=== PATIENT | female | born 1980 | race Caucasian/White ===

== ENCOUNTER 2017-07-04 16:43 | Emergency (ER) | payer OTHER, SELFPAY ==
[2017-07-04 16:45] VITALS: BMI 48.1
--- NOTE | 2017-07-04 16:46 | XR_ITS ---
XR chest 2V COMPARISON: None HISTORY: Chest pain TECHNIQUE: PA and lateral chest FINDINGS: This is somewhat poor inspiration. There are somewhat prominent bronchovascular markings in right lower lobe. This could be confluence of vascular shadows due to the poor inspiration but a minimal pneumonic infiltrate cannot be excluded. Right lung field and left lung field are clear. Cardiac size is likely normal considering the body habitus and poor inspiration. IMPRESSION: Questionable early infiltrate versus confluence of vascular shadows right lower lobe
[2017-07-04 16:55] VITALS: BP 131/91; PULSE 72; RESP 16; TEMP 36.8; O2SAT 96; BMI 48.1
[2017-07-04 17:00] LABS: Basophils # 0.1 K/mm3 (0-0.2); Basophils % 0.5 % (0.1-2.0); Eosinophils # 0.3 K/mm3 (0.0-0.4); Eosinophils % 2.6 % (0.1-12.0); Hematocrit 39.9 % (37.0-47.0); Lymphocytes # 3.8 K/mm3 (0.7-4.5); Lymphocytes % 37.4 K/mm3 (10-50); Mean Corpuscular HGB Conc 32.6 g/dL (31.8-35.4); Mean Corpuscular Hemoglobin 31.3 pg (27.0-31.2); Mean Corpuscular Volume 96.2 fl (81-99); Mean Platelet Volume 8.8 fl (7.4-10.4); Monocytes # 0.5 K/mm3 (0.1-1.0); Monocytes % 4.9 % (1.7-9.3); Neutrophils # 5.5 K/mm3 (1.8-7.8); Neutrophils % 54.5 % (37.0-80.0); Platelet Count 235 K/mm3 (142-424); Red Blood Count 4.15 M/mm3 (4.20-5.40); Red Cell Distribution Width 12.8 % (11.5-17.5); White Blood Count 10.1 K/mm3 (4.8-10.8)
--- NOTE | 2017-07-04 17:08 | HMH.EDSOB ---
ED Disposition Clinical Impression: COPD (chronic obstructive pulmonary disease), Tobacco use, Atypical chest pain, Obesity, Renal insufficiency Disposition: Home, Self-Care Condition on Discharge: Fair Instructions: DI for Chronic Obstructive Pulmonary Disease Additional Instructions: 1- stop smoking. 2- daily baby asa 81 mg . 3- albuterol MDI. 4- need to see her pcp Dr Newby for HGBA1C 5- need a referral by pcp for nephrology evalution. 6- The patient is aware of the above dangers to her health and vernalized undrstanding of the need for follow up. Dr. Langford Prescriptions: Albuterol Sulfate [Albuterol HFA Inhaler] 1 puff IH Q4HP PRN #1 inh PRN Reason: Shortness Of Breath Or Wheezing - Critical Care Critical Care Time: No Attestation: On , the high probability of a clinically significant, sudden or life threatening deterioration of the following system(s) required my full and direct attention, intervention and personal management. The time I documented below is in addition to time spent performing reported procedures but includes the following listed in this critical care notation. Medical Decision Making Vital Signs: 07/04/17 16:55 07/04/17 17:33 07/04/17 17:34 Temperature 98.3 F Temperature Source Oral Pulse Rate 88 83 Pulse Rate [Right Brachial] 72 Respiratory Rate 16 Blood Pressure [Right Arm] 131/91 Blood Pressure Mean [Right Arm] 104 Blood Pressure Source [Right Arm] Automatic Cuff Blood Pressure Position [Right Arm] Sitting 02 Sat by Pulse Oximetry 96 Oxygen Delivery Method Room Air - Lab Data Lab results reviewed: Yes: I reviewed the patient's lab results. Lab Results 07/04/17 16:48: WBC 10.1, RBC 4.15 L, Hgb 13.0, Hct 39.9, MCV 96.2, MCH 31.3 H, MCHC 32.6, RDW 12.8, Plt Count 235, MPV 8.8, Neut % (Auto) 54.5, Lymph % (Auto) 37.4, [place] % (Auto) 4.9, Eos % (Auto) 2.6, Baso % (Auto) 0.5, Neut # (Auto) 5.5, Lymph # (Auto) 3.8, [place] # (Auto) 0.5, Eos # (Auto) 0.3, Baso # (Auto) 0.1 07/04/17 16:48: D-Dimer 366 07/04/17 16:48: Sodium 144, Potassium 3.7, Chloride 107, Carbon Dioxide 29, Anion Gap 11.7, BUN 16, Creatinine 1.17 H, Estimated Creat Clear 52, Estimated GFR 52 L, Est GFR ( Amer) 63, Glucose 110 H, Calcium 8.8, Total Bilirubin 0.3, AST 12 L, ALT 32, Alkaline Phosphatase 135 H, Total Creatine Kinase 108, CK-MB (CK-2) < 0.5, CK-MB (CK-2) Rel Index 0.5, Troponin I < 0.02, Total Protein 7.2, Albumin 3.9, Globulin 3.3 H, Albumin/Globulin Ratio 1.2 07/04/17 16:48: B-Natriuretic Peptide 5 07/04/17 18:18: Specimen Source R/r, O2 % R/a, ABG pH 7.40, ABG pCO2 43.1, ABG pO2 60.3 L, ABG HCO3 26.0, ABG Total CO2 27.3 H, ABG O2 Saturation 93, ABG Base Excess 1.1, Blado Test Y 07/04/17 18:25: Troponin I < 0.02 Result diagrams: 07/04/17 16:48 07/04/17 16:48 Orders (Tests/Meds): ED MEDICATIONS Discontinued Medications Generic Name Dose Route Start Last Admin Trade Name Freq PRN Reason Stop Dose Admin Albuterol/Ipratropium 3 ml 07/04/17 18:00 Duoneb 3ml Neb IH 07/04/17 18:01 ONCE ONE Famotidine 20 mg 07/04/17 17:41 07/04/17 19:00 Pepcid 20mg/2ml Vial IV 07/04/17 17:42 20 mg ONCE ONE Administration Methylprednisolone Sodium Succinate 125 mg 07/04/17 17:41 07/04/17 19:00 Solu-Medrol 125mg/2ml Vial IV 07/04/17 17:42 125 mg ONCE ONE Administration ORDERS Category Date Time Status Chest XR 2 view (NOT portable) [XR chest 2V] Stat Exams 07/04/17 16:46 Taken ABG [Arterial Blood Gas] Stat RT 07/04/17 18:03 Ordered - Radiology Data #1 Image Reviewed: Yes I reviewed the patient's radiology image Preliminary Findings: Abnormal (Chronic changes no acute finding.) - ECG Data Tracing #1 EKG normal sinus rhythm 82/min no acute findings ECG initial impression date: 07/04/17 ECG initial impression time: 17:11 - Lloyd Inquiry Pt receiving controlled substance: No Lloyd was queried for t
--- NOTE | 2017-07-04 17:11 | ED_ITS ---
ED Disposition Clinical Impression: COPD (chronic obstructive pulmonary disease), Tobacco use, Atypical chest pain , Obesity, Renal insufficiency Disposition: Home, Self-Care Condition on Discharge: Fair Instructions: DI for Chronic Obstructive Pulmonary Disease Additional Instructions: 1- stop smoking. 2- daily baby asa 81 mg . 3- albuterol MDI. 4- need to see her pcp Dr Newby for HGBA1C 5- need a referral by pcp for nephrology evalution. 6- The patient is aware of the above dangers to her health and vernalized undrstanding of the need for follow up. Dr. Langford Prescriptions: Albuterol Sulfate [Albuterol HFA Inhaler] 1 puff IH Q4HP PRN #1 inh PRN Reason: Shortness Of Breath Or Wheezing - Critical Care Critical Care Time: No Attestation: On , the high probability of a clinically significant, sudden or life threatening deterioration of the following system(s) required my full and direct attention, intervention and personal management. The time I documented below is in addition to time spent performing reported procedures but includes the following listed in this critical care notation. Medical Decision Making Vital Signs: 07/04/17 16:55 07/04/17 17:33 07/04/17 17:34 Temperature 98.3 F Temperature Source Oral Pulse Rate 88 83 Pulse Rate [Right Brachial] 72 Respiratory Rate 16 Blood Pressure [Right Arm] 131/91 Blood Pressure Mean [Right Arm] 104 Blood Pressure Source [Right Arm] Automatic Cuff Blood Pressure Position [Right Arm] Sitting 02 Sat by Pulse Oximetry 96 Oxygen Delivery Method Room Air - Lab Data Lab results reviewed: Yes: I reviewed the patient's lab results. Lab Results 07/04/17 16:48: WBC 10.1, RBC 4.15 L, Hgb 13.0, Hct 39.9, MCV 96.2, MCH 31.3 H, MCHC 32.6, RDW 12.8, Plt Count 235, MPV 8.8, Neut % (Auto) 54.5, Lymph % (Auto) 37.4, [place] % (Auto) 4.9, Eos % (Auto) 2.6, Baso % (Auto) 0.5, Neut # (Auto) 5.5 , Lymph # (Auto) 3.8, [place] # (Auto) 0.5, Eos # (Auto) 0.3, Baso # (Auto) 0.1 07/04/17 16:48: D-Dimer 366 07/04/17 16:48: Sodium 144, Potassium 3.7, Chloride 107, Carbon Dioxide 29, Anion Gap 11.7, BUN 16, Creatinine 1.17 H, Estimated Creat Clear 52, Estimated GFR 52 L, Est GFR ( Amer) 63, Glucose 110 H, Calcium 8.8, Total Bilirubin 0.3, AST 12 L, ALT 32, Alkaline Phosphatase 135 H, Total Creatine Kinase 108, CK-MB (CK-2) < 0.5, CK-MB (CK-2) Rel Index 0.5, Troponin I < 0.02, Total Protein 7.2, Albumin 3.9, Globulin 3.3 H, Albumin/Globulin Ratio 1.2 07/04/17 16:48: B-Natriuretic Peptide 5 07/04/17 18:18: Specimen Source R/r, O2 % R/a, ABG pH 7.40, ABG pCO2 43.1, ABG pO2 60.3 L, ABG HCO3 26.0, ABG Total CO2 27.3 H, ABG O2 Saturation 93, ABG Base Excess 1.1, Baldo Test Y 07/04/17 18:25: Troponin I < 0.02 Result diagrams: 07/04/17 16:48 07/04/17 16:48 Orders (Tests/Meds): ED MEDICATIONS Discontinued Medications Generic Name Dose Route Start Last Admin Trade Name Freq PRN Reason Stop Dose Admin Albuterol/Ipratropium 3 ml 07/04/17 18:00 Duoneb 3ml Neb IH 07/04/17 18:01 ONCE ONE Famotidine 20 mg 07/04/17 17:41 07/04/17 19:00 Pepcid 20mg/2ml Vial IV 07/04/17 17:42 20 mg ONCE ONE Administration Methylprednisolone Sodium Succinate 125 mg 07/04/17 17:41 07/04/17 19:00 Solu-Medrol 125mg/2ml Vial IV 07/04/17 17:42 125 mg O
[2017-07-04 17:17] LABS: D-Dimer 366 (0-400)
[2017-07-04 17:25] LABS: Alanine Aminotransferase 32 U/L (12-78); Albumin Level 3.9 gm/dL (3.4-5.0); Albumin/Globulin Ratio 1.2 (1.1-1.8); Alkaline Phosphatase 135 U/L (46-116); Anion Gap 11.7 mEq/L (5-15); Aspartate Amino Transferase 12 U/L (15-37); Bilirubin,Total 0.3 mg/dL (0.2-1.0); Blood Urea Nitrogen 16 mg/dL (7-18); Calcium 8.8 mg/dL (8.5-10.1); Carbon Dioxide 29 mmol/L (21.0-32.0); Chloride 107 mmol/L (98-107); Creatine Kinase 108 U/L (26-192); Creatinine Clearance Estimated 52 mL/min (0-300); Creatinine,Serum 1.17 mg/dL (0.55-1.02); Estimated Glomerular Filt Rate 52 ml/min (>60); GFR (African American) 63 ML/MIN (>60); Globulin 3.3 gm/dl (1.3-3.2); Glucose 110 mg/dL (74-106); Potassium 3.7 mmoL/L (3.5-5.1); Sodium 144 mmol/L (136-145); Total Protein,Serum 7.2 gm/dL (6.4-8.2); Troponin I < 0.02 ng/ml (0.00-0.06)
[2017-07-04 17:26] LABS: CKMB Relative Index 0.5 U/L (0-4.0); Creatine Kinase MB < 0.5 mg/ml (0.0-3.6)
[2017-07-04 17:33] VITALS: PULSE 88
[2017-07-04 17:34] VITALS: PULSE 83
[2017-07-04 18:19] LABS: ABG Base Excess 1.1 mmol/L (-2.4-2.3); ABG Oxygen Saturation 93 % (90-100); ABG PCO2 43.1 mmhg (35.0-45.0); ABG PO2 60.3 mmhg (80-100); ABG TCO2 27.3 mmhg (23-27)
[2017-07-04 18:20] LABS: Allen's Test Y; Oxygen R/A %; Source R/R
[2017-07-04 19:06] LABS: Troponin I < 0.02 ng/ml (0.00-0.06)
--- NOTE | 2017-07-04 20:07 | PC.NURSE ---
DOCTOR PHIL CALLED AND SPOKE WITH DR GALVAN ABOUT PT POSSIBLY HAVING PNEUMONIA. DR GALVAN LEFT AND HAND WRITTEN RX FOR PT FOR A Z-EDIL WITH REGISTRATION AND PT WAS CALLED AND STATED SHE WOULD PICK IT UP TONIGHT.
[2017-07-04 20:12] VITALS: BP 110/68; PULSE 83; RESP 18; TEMP 36.7; O2SAT 96
== END 2017-07-04 20:12 | disposition home or self-care (01) ==
PROVIDERS: Emergency Provider Emergency Medicine; Family Provider Family Medicine
DX: R07.9 Chest pain, unspecified (principal); J44.9 Chronic obstructive pulmonary disease, unspecified; F17.210 Nicotine dependence, cigarettes, uncomplicated; E66.9 Obesity, unspecified; Z68.42 Body mass index [BMI] 45.0-49.9, adult; E11.9 Type 2 diabetes mellitus without complications
CPT/HCPCS: 71046; 80053; 82550; 82553; 82803; 83880; 84484; 85025; 85378; 93005; 93041; 96374; 96375; 99282; 99283

== ENCOUNTER 2019-11-17 18:37 | Emergency (ER) | payer OTHER, SELFPAY ==
[2019-11-17 18:39] VITALS: BP 152/91; PULSE 81; RESP 16; TEMP 36.8; O2SAT 98; BMI 45.3
--- NOTE | 2019-11-17 18:57 | XR_ITS ---
PROCEDURE: XR ELBOW RT 2V CLINICAL INDICATION: trauma The pain COMPARISON: No exams were available for comparison FINDINGS: No fracture or dislocation. No lytic or blastic change. There is normal mineralization. The joint spaces are well-preserved. No significant degenerative/arthritic changes. No erosive changes evident. Other findings:None. IMPRESSION: No acute findings. Dictated by: Baldo Valencia MD 11/18/2019 07:04 Electronically signed by Baldo Valencia MD in [place] 11/18/2019 07:04
--- NOTE | 2019-11-17 18:57 | XR_ITS ---
PROCEDURE: XR WRIST RT MIN 3V CLINICAL INDICATION: trauma Pain following injury COMPARISON: No exams were available for comparison FINDINGS: No fracture, dislocation, lytic change, or blastic change evident. No significant degenerative change IMPRESSION: No acute findings. Dictated by: Baldo Valencia MD 11/18/2019 06:55 Electronically signed by Baldo Valencia MD in [facility] 11/18/2019 06:55
--- NOTE | 2019-11-17 19:10 | HMH.EDEXTP ---
ED Disposition Clinical Impression: Traumatic hematoma of right forearm, Sprain of right elbow Disposition: Home, Self-Care Condition on Discharge: Good Instructions: DI for Elbow Sprain Prescriptions: Hydrocod/Acet 5/325 mg [[place] 5/325mg tablet] 1 tab PO Q6HP PRN #7 tab PRN Reason: Moderate Pain Prescription Printed Referrals: Jaci Moran APRN [Primary Care Provider] - Oscar Livingston MD [Staff Physician] - Time of Disposition: 19:37 - Critical Care Critical Care Time: No Attestation: On 11/17/19, the high probability of a clinically significant, sudden or life threatening deterioration of the following system(s) required my full and direct attention, intervention and personal management. The time I documented below is in addition to time spent performing reported procedures but includes the following listed in this critical care notation. Medical Decision Making - Medical Records Medical records reviewed: Yes: I reviewed the patient's medical records. - Lloyd Inquiry Pt receiving controlled substance: Yes Lloyd was queried for this patient: No Risks and benefits of using a controlled substance: were discussed with pt by me Vital Signs: 11/17/19 18:39 Temperature 98.2 F Temperature Source Oral Pulse Rate [Right Brachial] 81 Respiratory Rate 16 Blood Pressure [Right Arm] 152/91 H Blood Pressure Mean [Right Arm] 111 Blood Pressure Source [Right Arm] Automatic Cuff Blood Pressure Position [Right Arm] Sitting 02 Sat by Pulse Oximetry 98 Oxygen Delivery Method Room Air Orders (Tests/Meds): ORDERS Category Date Time Status XR elbow RT 2V Stat Exams 11/17/19 18:57 Taken XR wrist RT min 3V Stat Exams 11/17/19 18:57 Taken - Radiology Data #1 X-ray of the right elbow and wrist did not show any acute fracture or dislocation - Reevaluation(s) Time: 19:34 Reevaluation #1: On reevaluation, the patient is feeling much better. Pain is improved. Will provide Marc wrap. There is no evidence of fracture. Patient was instructed to do normal injury precaution including icing and resting the wound. Discharged with a short course analgesics. Needs to follow-up with orthopedics in 48 hours. Given strict return precautions. Verbalized understanding. Medical Decision Narrative: 39-year-old female presented to the emergency department with right arm pain. Patient has no obvious deformity on exam. Small hematoma. I do believe she is having some mild ulnar paresthesias secondary to the trauma. X-ray will be obtained. Extremity Problem HPI - General Chief complaint: Extremity Injury, Upper Stated complaint: AO fall possible broken R wrist 11/14/19 Time Seen by Provider: 11/17/19 18:41 Mode of Arrival: Ambulatory Limitations: No Limitations Description of Symptoms (Recalled from ER Triage Doc. by RN): Pt advises she fell on wednesday and injured her right wrist. Advises she has been seen at her PCP and she told her she needed to get a second opinion on her injury. - History of Present Illness HPI Narrative: 39-year-old female presented to the emergency department with some right arm pain. Patient states that she had a fall 3 days ago. She fell down 2 stairs and landed on her right side. She is complaining of right arm pain since then. She has been seen in numerous facilities and states that she was not diagnosed with a fracture. She was given Marc bandage, however it is not improved. Patient got concerned because she wrapped the Marc bandage too hard last night and she had some paresthesias in her left hand. And some swelling as well. She states that this did improve but she got concerned. The pain is worse with movement. Is located from her elbow down to her wrist. She denies any new injuries. There was no syncope, head trauma or loss consciousness. Denies any chest pain or shortness of breath. No abdominal pain or vomiting. - Related Data Previous Rx's Medicati
[2019-11-17 19:55] VITALS: BP 142/82; PULSE 71; RESP 18; O2SAT 97
[2019-11-17 20:12] VITALS: BP 129/89; PULSE 73; RESP 14; TEMP 36.8; O2SAT 97
== END 2019-11-17 20:16 | disposition home or self-care (01) ==
PROVIDERS: Emergency Provider Emergency Medicine; PCP Nurse Practitioner Family
DX: S50.11XA Contusion of right forearm, initial encounter (principal); S53.401A Unspecified sprain of right elbow, initial encounter; W10.9XXA Fall (on) (from) unspecified stairs and steps, initial encounter; Y92.019 Unspecified place in single-family (private) house as the place of occurrence of the external cause; F17.210 Nicotine dependence, cigarettes, uncomplicated; E11.9 Type 2 diabetes mellitus without complications; Z88.2 Allergy status to sulfonamides
CPT/HCPCS: 73070; 73110; 99282

== ENCOUNTER 2020-07-28 22:24 | Emergency (ER) | payer OTHER, SELFPAY ==
[2020-07-28 22:25] VITALS: BP 148/92; PULSE 80; RESP 14; TEMP 36.5; O2SAT 95; BMI 46.3
--- NOTE | 2020-07-29 00:01 | XR_ITS ---
PROCEDURE: XR RIBS LT MIN 3V W CXR1V CLINICAL INDICATION: pain COMPARISON: No exams were available for comparison FINDINGS: Multiple views of the left ribs show no obvious fracture. No lytic or blastic change. Consider follow-up in 7-[address] with 3D reformats if pain persists Frontal view of the chest shows no acute finding IMPRESSION: No acute findings. Dictated by: Baldo Valencia MD 07/29/2020 05:11 Baldo Valencia MD in [facility] 07/29/2020 05:11
--- NOTE | 2020-07-29 00:29 | HMH.EDGENADL ---
ED Disposition Clinical Impression: Costochondritis, acute Disposition: Home, Self-Care Condition on Discharge: Good Instructions: DI for Acute Pain -- Adult Additional Instructions: see pcp for follow up Prescriptions: predniSONE [Prednisone 20mg Tab] 20 mg PO BID #10 tab Transmission Status: Pending to [facility] Referrals: Jaci Moran APRN [Primary Care Provider] - - Critical Care Critical Care Time: No Attestation: On 07/28/20, the high probability of a clinically significant, sudden or life threatening deterioration of the following system(s) required my full and direct attention, intervention and personal management. The time I documented below is in addition to time spent performing reported procedures but includes the following listed in this critical care notation. Medical Decision Making - Medical Records Medical records reviewed: Yes: I reviewed the patient's medical records. - Lloyd Inquiry Pt receiving controlled substance: No Vital Signs: 07/28/20 22:25 07/29/20 01:53 07/29/20 02:00 Temperature 97.7 F Temperature Source Oral Pulse Rate 82 64 Pulse Rate [Right] 80 Respiratory Rate 14 Blood Pressure 126/87 133/89 Blood Pressure [Right Arm] 148/92 H Blood Pressure Mean 97 103 Blood Pressure Mean [Right Arm] 110 02 Sat by Pulse Oximetry 95 97 98 Oxygen Delivery Method Room Air - Lab Data Lab results reviewed: Yes: I reviewed the patient's lab results. Lab Results 07/29/20 00:51: WBC 11.8 H, RBC 4.15 L, Hgb 13.6, Hct 41.8, MCV 100.6 H, MCH 32.7 H, MCHC 32.5, RDW 13.8, Plt Count 263, MPV 8.1, Neut % (Auto) 53.4, Lymph % (Auto) 40.0, [place] % (Auto) 3.9, Eos % (Auto) 2.2, Baso % (Auto) 0.6, Neut # (Auto) 6.3, Lymph # (Auto) 4.7 H, [place] # (Auto) 0.5, Eos # (Auto) 0.3, Baso # (Auto) 0.1, ESR 17 07/29/20 00:51: Sodium 139, Potassium 4.1, Chloride 107, Carbon Dioxide 26, Anion Gap 10.1, BUN 19 H, Creatinine 1.10 H, Estimated Creat Clear 58, Estimated GFR 55 L, Est GFR ( Amer) 66, Glucose 106 H, Calcium 9.7, Total Bilirubin 0.3, AST 36, ALT 39, Alkaline Phosphatase 110, C-Reactive Protein 4.3 H, Total Protein 7.4, Albumin 4.6, Globulin 2.8, Albumin/Globulin Ratio 1.6, Amylase 56, Lipase 46, Procalcitonin 0.065 Result diagrams: 07/29/20 00:51 07/29/20 00:51 Orders (Tests/Meds): ED MEDICATIONS Discontinued Medications Generic Name Dose Route Start Last Admin Trade Name Freq PRN Reason Stop Dose Admin Iopamidol 70 ml 07/29/20 01:42 07/29/20 01:43 Iopamidol-370 (76%);100ml Bottle IV 07/29/20 01:43 70 ml ONCE ONE Administration Ketorolac Tromethamine 30 mg 07/29/20 00:39 07/29/20 00:53 Ketorolac 30mg/Ml Vial IV 07/29/20 00:40 30 mg ONCE ONE Administration Methylprednisolone Sodium Succinate 125 mg 07/29/20 00:39 07/29/20 00:53 Methylprednisolone Sod Succ 125mg Vial IV 07/29/20 00:40 125 mg ONCE ONE Administration Sodium Chloride 50 ml 07/29/20 01:42 07/29/20 01:43 0.9 % Sodium Chloride 50 Ml Vial IV 07/29/20 01:43 50 ml ONCE ONE Administration Sodium Chloride 10 ml 07/29/20 01:42 07/29/20 01:43 Sodium Chloride 0.9% 10ml Syr (Rad Only) IV 07/29/20 01:43 10 ml ONCE ONE Administration ORDERS Category Date Time Status CT Chest w/PE protocol [CT angio chest] Stat Cat Scan 07/29/20 00:50 Taken XR ribs LT min 3V w CXR1V Stat Exams 07/29/20 00:01 Taken - Radiology Data #1 Image(s): Chest Image Reviewed: Yes I reviewed the patient's radiology image Preliminary Findings: Normal/NAD - CT Data CT Scan: Chest Time Received: 02:[address] Reviewed: Yes: I have viewed the radiologist's interpretation Preliminary Findings: Normal/NAD Medical Decision Narrative: no specific abn will treat as inflamatory at this time General Adult HPI - General Chief complaint: PAIN Stated complaint: pain in swelling in L rib area no accident Time Seen by Provider: 07/29/20 00:29 Mode of
--- NOTE | 2020-07-29 00:50 | CT_ITS ---
PROCEDURE: CT ANGIO CHEST CLINCIAL INDICATION: pain Left-sided pain COMPARISON: No exams were available for comparison TECHNIQUE: IV Contrast: 70ML Isovue 370 Axial images obtained with sagittal and coronal reformats. All CT scans at the facility use one or more dose reduction, viz: automated exposure control, ma/kV adjustment per patient size (including targeted exams where dose is matched to indication, i.e. head), or iterative reconstruction technique. FINDINGS: The thyroid gland is enlarged including both lobes and the isthmus. Incompletely imaged. No evidence of pulmonary embolus, aortic aneurysm, or aortic dissection.. Small amount fluid is present in the superior pericardial recess. Small hiatal hernia. No lobar consolidation or collapse. Mild degenerative changes thoracic. Fatty liver. IMPRESSION: No evidence of pulmonary embolus, aortic aneurysm, or aortic dissection. Other nonacute findings as described above. The Dictated by: Baldo Valencia MD 07/29/2020 06:08 Baldo Valencia MD in [facility] 07/29/2020 06:08
[2020-07-29 00:58] LABS: Basophils # 0.1 K/mm3 (0-0.2); Basophils % 0.6 % (0.1-2.0); Eosinophils # 0.3 K/mm3 (0.0-0.4); Eosinophils % 2.2 % (0.1-12.0); Hematocrit 41.8 % (37.0-47.0); Hemoglobin 13.6 g/dL (12.2-16.2); Lymphocytes # 4.7 K/mm3 (0.7-4.5); Mean Corpuscular HGB Conc 32.5 g/dL (31.8-35.4); Mean Corpuscular Hemoglobin 32.7 pg (27.0-31.2); Mean Corpuscular Volume 100.6 fl (81-99); Mean Platelet Volume 8.1 fl (7.4-10.4); Monocytes # 0.5 K/mm3 (0.1-1.0); Monocytes % 3.9 % (1.7-9.3); Neutrophils # 6.3 K/mm3 (1.8-7.8); Neutrophils % 53.4 % (37.0-80.0); Platelet Count 263 K/mm3 (142-424); Red Blood Count 4.15 M/mm3 (4.20-5.40); Red Cell Distribution Width 13.8 % (11.5-17.5); White Blood Count 11.8 K/mm3 (4.8-10.8)
[2020-07-29 01:15] LABS: Alanine Aminotransferase 39 U/L (12-78); Albumin Level 4.6 g/dl (3.5-5.0); Albumin/Globulin Ratio 1.6 (1.1-1.8); Alkaline Phosphatase 110 U/L (38-126); Amylase 56 U/L (30-110); Anion Gap 10.1 mEq/L (5-15); Aspartate Amino Transferase 36 U/L (14-36); Bilirubin,Total 0.3 mg/dl (0.2-1.3); Blood Urea Nitrogen 19 mg/dl (7-17); Calcium 9.7 mg/dl (8.4-10.2); Carbon Dioxide 26 mmol/L (22.0-30.0); Chloride 107 mmol/L (98-107); Creatinine Clearance Estimated 58 mL/min (50-200); Estimated Glomerular Filt Rate 55 ml/min (>60); GFR (African American) 66 ML/MIN (>60); Globulin 2.8 g/dL (1.3-3.2); Glucose 106 mg/dl (74-100); Lipase 46 U/L (23-300); Potassium 4.1 mmoL/L (3.5-5.1); Sodium 139 mmol/L (136-145); Total Protein,Serum 7.4 g/dl (6.3-8.2)
[2020-07-29 01:20] LABS: C-Reactive Protein 4.3 mg/L (0-4)
[2020-07-29 01:28] LABS: Erythrocyte Sedimentation Rate 17 mm/hr (0-20)
[2020-07-29 01:34] LABS: Procalcitonin 0.065 ng/mL (0.0-2.0)
[2020-07-29 01:53] VITALS: BP 126/87; PULSE 82; O2SAT 97
[2020-07-29 02:00] VITALS: BP 133/89; PULSE 64; O2SAT 98
[2020-07-29 02:13] VITALS: BP 133/89; PULSE 82; RESP 18; TEMP 36.5; O2SAT 97
== END 2020-07-29 02:16 | disposition home or self-care (01) ==
PROVIDERS: Emergency Provider Emergency Medicine; PCP Nurse Practitioner Family
DX: M94.0 Chondrocostal junction syndrome [Tietze] (principal); E11.9 Type 2 diabetes mellitus without complications; F17.210 Nicotine dependence, cigarettes, uncomplicated; Z88.2 Allergy status to sulfonamides
CPT/HCPCS: 71101; 71275; 80053; 82150; 83690; 84145; 85025; 85651; 86140; 96374; 96375; 99282; Q9967